=== PATIENT | female | born 1995 | race African-American/Black ===

== ENCOUNTER 2019-03-12 18:39 | Emergency (ER) | payer OTHER ==
[~2019-03-12] VITALS: Ht 172.7 cm; Wt 57.2 kg
--- NOTE | 2019-03-12 19:00 | NUR ---
Received pt. in bed 2B A/O x 4 speaks clearly in full sentences and states 8/10 hemorrhoidal pain for the past week and a half. Awaiting to be seen by Dr. Wynn.
== END 2019-03-12 19:33 | disposition home or self-care (01) ==
LOC: ER 18:41
DX: K64.9 Unspecified hemorrhoids (principal); J45.909 Unspecified asthma, uncomplicated
CPT/HCPCS: A4663